=== PATIENT | male | born 1975 ===

== ENCOUNTER 2021-06-07 13:58 | Emergency (ER) | payer OTHER ==
[~2021-06-07] VITALS: Ht 175.3 cm; Wt 118.2 kg
[2021-06-07] MEDS ORDERED: TETanus/Pertussis (Acell)/Diphther VAC/PF (Tdap-Adult) 0.5ml syringe IMVAC ONE (14:40)
[2021-06-07] MEDS ORDERED: bacitracin 15gm ointment TP ONE (14:40)
[2021-06-07 14:46] VITALS: BP 130/88
[2021-06-07 15:50] LABS: HIV ANTIBODY 1&2 RAPID NON-REACTIVE (Neg)
[2021-06-10 19:35] LABS: HEP B CORE AB, TOT Negative (Negative); HEPATITIS C ANTIBODY <0.1 s/co ratio (0.0-0.9)
== END 2021-06-07 16:14 | disposition home or self-care (01) ==
LOC: ER 14:00
DX: S00.512A Abrasion of oral cavity, initial encounter (principal); S40.811A Abrasion of right upper arm, initial encounter; Z77.21 Contact with and (suspected) exposure to potentially hazardous body fluids; Y04.0XXA Assault by unarmed brawl or fight, initial encounter; Y93.89 Activity, other specified; Y92.89 Other specified places as the place of occurrence of the external cause; Y99.8 Other external cause status
CPT/HCPCS: 36415; 86703; 86704; 86705; 86706; 86803; 90471; 90715; 99283